=== PATIENT | female | born 1965 | race Caucasian/White ===

== ENCOUNTER → 2016-08-12 | Outpatient (CLI) | payer OTHER | END | disposition home or self-care (01) | LOC: MA 13:18 | PROC: BH02ZZZ Plain Radiography of Bilateral Breasts (ICD-10-PCS; principal; 2016-08-12) | DX: Z12.39 Encounter for other screening for malignant neoplasm of breast (principal) | CPT/HCPCS: G0202 ==

== ENCOUNTER 2017-01-26 19:26 | Emergency (ER) | payer BC ==
[~2017-01-26] VITALS: Ht 157.5 cm; Wt 82.1 kg
[2017-01-26 21:10] VITALS: BP 150/98
== END 2017-01-26 21:10 | disposition home or self-care (01) ==
LOC: ED 19:26
DX: T78.40XA Allergy, unspecified, initial encounter (principal); T37.8X5A Adverse effect of other specified systemic anti-infectives and antiparasitics, initial encounter; Z88.0 Allergy status to penicillin; Y92.89 Other specified places as the place of occurrence of the external cause
CPT/HCPCS: J7512; Q0163